=== PATIENT | male | born 1985 | race Caucasian/White ===

== ENCOUNTER 2017-03-03 23:15 | Emergency (ER) | payer OTHER ==
[~2017-03-03] VITALS: Ht 177.8 cm; Wt 77.1 kg
[~2017-03-03 23:15] MED LIST: AMOX500 PO; Bactrim Ds Tab1 EACH PO; CLIN150 PO; CLON.1 PO; CYCL10 PO; Cleocin HCl150 MG PO; Cleocin HCl300 MG PO; DESENEX TOP; DIVA500EC; DIVA500ER; DOXY100 PO; Doxycycline150 MG PO; HYDACE10B PO; HYDACE5 PO; IBUP200; IBUP600 PO; IBUP800; IBUP800 PO; JUBLIA4 ML TP; LOPE2C PO; META800 PO; METH10; METH40; MONDOXYNE NL100 MG PO; NAPR500 PO; NAPR550 PO; Naprosyn500 MG PO; OXYACE5T PO; PENVK250 PO; PENVK500 PO; PROM25 PO; Penicillin125 MG/5 M; RXPENVK250 PO; SULTRIDS PO; TOLN45 TOP; TRAACE PO; Vibramycin100 MG PO; Zofran Odt4 MG SL; Zofran4 MG PO
[2017-03-04] MEDS ORDERED: BUPR100 PO (00:07)
[2017-03-04 00:26] LABS: BASOPHILS ABSOLUTE AUTO 0.02 K/mm3 (0.00-0.23); BASOPHILS PERCENT AUTO 0 % (0-2); EOSINOPHILS ABSOLUTE AUTO 0.07 K/mm3 (0.00-0.68); EOSINOPHILS PERCENT AUTO 1 % (0-6); Hematocrit 36.7 % (37.0-53.0); Hemoglobin 12.5 g/dL (13.5-17.5); IMMATURE GRAN ABSOLUTE AUTO 0.02 K/mm3 (0.00-0.10); IMMATURE GRAN PERCENT AUTO 0 % (0-1); LYMPHOCYTES ABSOLUTE AUTO 1.41 K/mm3 (0.84-5.20); LYMPHOCYTES PERCENT AUTO 13 % (21-46); MONOCYTES ABSOLUTE AUTO 1.18 K/mm3 (0.16-1.47); MONOCYTES PERCENT AUTO 11 % (4-13); Mean Corpuscular HGB 30.6 pg (26.0-34.0); Mean Corpuscular HGB Conc 34.1 g/dL (31.5-36.5); Mean Corpuscular Volume 90 fL (80-100); Mean Platelet Volume 11.1 fL (9.1-12.4); NEUTROPHILS ABSOLUTE AUTO 7.79 K/mm3 (1.96-9.15); NEUTROPHILS PERCENT AUTO 74 % (41-73); Platelet Count 241 K/mm3 (150-400); RDW Coefficient Variation 12.9 % (11.7-14.2); RDW Standard Deviation 42.6 fL (35.1-46.3); Red Blood Cell Count 4.09 M/mm3 (4.30-5.90); White Blood Cell Count 10.49 K/mm3 (4.00-11.30)
[2017-03-04 00:44] LABS: Alanine Aminotransfer (ALT/SGP 25 U/L (12-78); Albumin, Blood 3.4 g/dL (3.4-5.0); Albumin/Globulin Ratio 0.9 (0.8-1.8); Alk Phos 57 U/L (50-136); Anion Gap 8 mmol/L (6-16); Aspartate Aminotrans (AST/SGOT 24 U/L (12-37); Bilirubin, Total 0.4 mg/dL (0.1-1.0); Blood Urea Nitrogen 14 mg/dL (8-24); CO2, Blood 28 mmol/L (21-32); Calcium, Blood 8.5 mg/dL (8.5-10.1); Chloride, Blood 107 mmol/L (98-108); Creatinine, Blood 0.58 mg/dL (0.60-1.20); Globulin, Blood 3.6 g/dL (2.2-4.0); Glomerular Filtration Rate >60 (60-); Glucose, Blood 104 mg/dL (70-99); Potassium, Blood 3.4 mmol/L (3.5-5.5); Sodium, Blood 143 mmol/L (136-145)
[2017-03-04] MEDS ORDERED: Zofran Odt4 MG SL (01:15)
[2017-07-26] MEDS ORDERED: Bactrim Ds Tab1 EACH PO (06:57)
[2017-09-25] MEDS ORDERED: Loperamide2 MG PO (05:46)
[2017-09-25] MEDS ORDERED: Zofran Odt4 MG PO (05:46)
== END 2017-03-04 01:30 | disposition home or self-care (01) ==
LOC: ER 23:15
PROVIDERS: Physician Assistant
DX: R10.32 Left lower quadrant pain (principal); R11.2 Nausea with vomiting, unspecified; F41.9 Anxiety disorder, unspecified; F17.200 Nicotine dependence, unspecified, uncomplicated; Z79.899 Other long term (current) drug therapy; Z90.89 Acquired absence of other organs
CPT/HCPCS: 36415; 80053; 83690; 85025; 96361; 96374; 99283; J2405; J7030

== ENCOUNTER 2017-04-11 06:53 | Emergency (ER) | payer OTHER ==
[~2017-04-11] VITALS: Ht 177.8 cm; Wt 68.0 kg
[~2017-04-11 06:53] MED LIST changes: +BUPR100 PO
[2017-04-11] MEDS ORDERED: IBUP600 PO (07:24)
[2017-07-26] MEDS ORDERED: Bactrim Ds Tab1 EACH PO (06:57)
[2017-09-25] MEDS ORDERED: Loperamide2 MG PO (05:46)
[2017-09-25] MEDS ORDERED: Zofran Odt4 MG PO (05:46)
== END 2017-04-11 07:29 | disposition home or self-care (01) ==
LOC: ER 06:53
DX: M79.621 Pain in right upper arm (principal); F41.9 Anxiety disorder, unspecified; F17.200 Nicotine dependence, unspecified, uncomplicated; Z86.19 Personal history of other infectious and parasitic diseases; Z90.89 Acquired absence of other organs
CPT/HCPCS: 99282

== ENCOUNTER 2017-04-19 01:38 | Emergency (ER) | payer OTHER ==
[~2017-04-19] VITALS: Ht 177.8 cm; Wt 69.4 kg
[2017-04-19 02:28] LABS: Source, Urine Clean Catch
[2017-04-19 02:30] LABS: Bilirubin, Urine Neg (Neg); Blood, Urine Neg (Neg); Glucose Qualitative, Urine Neg (Neg); Ketones, Urine Neg (Neg); Leukocyte Esterase, Urine Neg (Neg); Nitrite, Urine Neg (Neg); Protein, Urine 1+ (Neg); Specific Gravity, Urine 1.025 (1.003-1.022); Urobilinogen, Urine 1+ (Normal)
[2017-04-19 02:35] LABS: Appearance, Urine Clear (Clear); Color, Urine Yellow (P-Yellow)
[2017-07-26] MEDS ORDERED: Bactrim Ds Tab1 EACH PO (06:57)
[2017-09-25] MEDS ORDERED: Zofran Odt4 MG PO (05:46)
[2017-09-25] MEDS ORDERED: Loperamide2 MG PO (05:46)
== END 2017-04-19 03:15 | disposition home or self-care (01) ==
LOC: ER 01:38
PROVIDERS: Emergency Medicine
DX: R30.0 Dysuria (principal); N50.812 Left testicular pain; F17.200 Nicotine dependence, unspecified, uncomplicated
CPT/HCPCS: 99283; J0696

== ENCOUNTER 2017-04-29 04:51 | Emergency (ER) | payer OTHER ==
[~2017-04-29] VITALS: Ht 172.7 cm; Wt 65.8 kg
[2017-07-26] MEDS ORDERED: Bactrim Ds Tab1 EACH PO (06:57)
[2017-09-25] MEDS ORDERED: Loperamide2 MG PO (05:46)
[2017-09-25] MEDS ORDERED: Zofran Odt4 MG PO (05:46)
== END 2017-04-29 05:23 | disposition left against medical advice (07) ==
LOC: ER 04:51
DX: Z53.21 Procedure and treatment not carried out due to patient leaving prior to being seen by health care provider (principal)
CPT/HCPCS: 99281

== ENCOUNTER 2017-05-01 04:26 | Emergency (ER) | payer OTHER ==
[2017-07-26] MEDS ORDERED: Bactrim Ds Tab1 EACH PO (06:57)
[2017-09-25] MEDS ORDERED: Zofran Odt4 MG PO (05:46)
[2017-09-25] MEDS ORDERED: Loperamide2 MG PO (05:46)
== END 2017-05-01 05:56 | disposition left against medical advice (07) ==
LOC: ER 04:26
DX: Z53.21 Procedure and treatment not carried out due to patient leaving prior to being seen by health care provider (principal)

== ENCOUNTER 2017-05-08 00:12 | Emergency (ER) | payer OTHER ==
[~2017-05-08] VITALS: Ht 177.8 cm; Wt 70.3 kg
[2017-07-26] MEDS ORDERED: Bactrim Ds Tab1 EACH PO (06:57)
[2017-09-25] MEDS ORDERED: Loperamide2 MG PO (05:46)
[2017-09-25] MEDS ORDERED: Zofran Odt4 MG PO (05:46)
== END 2017-05-08 05:48 | disposition home or self-care (01) ==
LOC: ER 00:12
DX: B35.3 Tinea pedis (principal); F41.9 Anxiety disorder, unspecified; F17.210 Nicotine dependence, cigarettes, uncomplicated
CPT/HCPCS: 99282

== ENCOUNTER 2017-05-22 20:32 | Emergency (ER) | payer OTHER ==
[~2017-05-22] VITALS: Ht 177.8 cm; Wt 68.0 kg
== END 2017-05-22 21:13 | disposition left against medical advice (07) ==
LOC: ER 20:32
DX: Z53.21 Procedure and treatment not carried out due to patient leaving prior to being seen by health care provider (principal)
CPT/HCPCS: 93005; 93010; 99283

== ENCOUNTER 2017-07-01 18:59 | Emergency (ER) | payer SELFPAY | END 2017-07-01 20:01 | disposition left against medical advice (07) | LOC: ER 18:59 | DX: Z53.21 Procedure and treatment not carried out due to patient leaving prior to being seen by health care provider (principal) ==

== ENCOUNTER 2017-07-17 07:10 | Inpatient (IN) | payer OTHER ==
[~2017-07-17] VITALS: Ht 180.3 cm; Wt 77.9 kg
[2017-07-17 08:45] LABS: BASOPHILS ABSOLUTE AUTO 0.04 K/mm3 (0.00-0.23); BASOPHILS PERCENT AUTO 0 % (0-2); EOSINOPHILS ABSOLUTE AUTO 0.07 K/mm3 (0.00-0.68); EOSINOPHILS PERCENT AUTO 1 % (0-6); IMMATURE GRAN ABSOLUTE AUTO 0.09 K/mm3 (0.00-0.10); IMMATURE GRAN PERCENT AUTO 1 % (0-1); LYMPHOCYTES ABSOLUTE AUTO 1.31 K/mm3 (0.84-5.20); LYMPHOCYTES PERCENT AUTO 9 % (21-46); MONOCYTES ABSOLUTE AUTO 1.27 K/mm3 (0.16-1.47); MONOCYTES PERCENT AUTO 8 % (4-13); Mean Corpuscular HGB 30.4 pg (26.0-34.0); Mean Corpuscular HGB Conc 34.1 g/dL (31.5-36.5); Mean Corpuscular Volume 89 fL (80-100); Mean Platelet Volume 10.5 fL (9.1-12.4); NEUTROPHILS ABSOLUTE AUTO 12.62 K/mm3 (1.96-9.15); NEUTROPHILS PERCENT AUTO 82 % (41-73); Platelet Count 385 K/mm3 (150-400); RDW Coefficient Variation 12.5 % (11.7-14.2); RDW Standard Deviation 41.2 fL (35.1-46.3); Red Blood Cell Count 4.61 M/mm3 (4.30-5.90)
[2017-07-17 09:00] LABS: Alanine Aminotransfer (ALT/SGP 35 U/L (12-78); Albumin, Blood 3.3 g/dL (3.4-5.0); Albumin/Globulin Ratio 0.7 (0.8-1.8); Alk Phos 94 U/L (50-136); Anion Gap 8 mmol/L (6-16); Aspartate Aminotrans (AST/SGOT 24 U/L (12-37); Bilirubin, Total 0.4 mg/dL (0.1-1.0); Blood Urea Nitrogen 11 mg/dL (8-24); Bun/Creatinine Ratio 16.2 (12.0-20.0); CO2, Blood 28 mmol/L (21-32); Calcium, Blood 8.9 mg/dL (8.5-10.1); Chloride, Blood 106 mmol/L (98-108); Creatinine, Blood 0.68 mg/dL (0.60-1.20); Globulin, Blood 4.7 g/dL (2.2-4.0); Glomerular Filtration Rate >60 (60-); Glucose, Blood 96 mg/dL (70-99); Potassium, Blood 3.8 mmol/L (3.5-5.5); Sodium, Blood 142 mmol/L (136-145)
== END 2017-07-17 14:45 | disposition left against medical advice (07) | DRG 603 ==
LOC: ER 07:10 → ERHOLD 10:10 → MEDS 10:10
PROVIDERS: Emergency Medicine
DX: L02.414 Cutaneous abscess of left upper limb (principal); I10 Essential (primary) hypertension; F17.210 Nicotine dependence, cigarettes, uncomplicated; F15.21 Other stimulant dependence, in remission; F41.9 Anxiety disorder, unspecified; B95.62 Methicillin resistant Staphylococcus aureus infection as the cause of diseases classified elsewhere
CPT/HCPCS: 36415; 71046; 73110; 76882; 80053; 85025; 87070; 87075; 87077; 87186; 87205; 96365; 96366; 99285; J3370

== ENCOUNTER 2017-07-20 10:58 | Inpatient (IN) | payer OTHER ==
[~2017-07-20] VITALS: Ht 177.8 cm; Wt 75.2 kg
[2017-07-20 13:08] LABS: BASOPHILS ABSOLUTE AUTO 0.05 K/mm3 (0.00-0.23); BASOPHILS PERCENT AUTO 1 % (0-2); EOSINOPHILS PERCENT AUTO 3 % (0-6); Hematocrit 40.1 % (37.0-53.0); Hemoglobin 13.6 g/dL (13.5-17.5); IMMATURE GRAN ABSOLUTE AUTO 0.08 K/mm3 (0.00-0.10); IMMATURE GRAN PERCENT AUTO 1 % (0-1); LYMPHOCYTES ABSOLUTE AUTO 2.26 K/mm3 (0.84-5.20); LYMPHOCYTES PERCENT AUTO 22 % (21-46); MONOCYTES ABSOLUTE AUTO 0.77 K/mm3 (0.16-1.47); MONOCYTES PERCENT AUTO 7 % (4-13); Mean Corpuscular HGB 30.6 pg (26.0-34.0); Mean Corpuscular HGB Conc 33.9 g/dL (31.5-36.5); Mean Corpuscular Volume 90 fL (80-100); Mean Platelet Volume 11.1 fL (9.1-12.4); NEUTROPHILS ABSOLUTE AUTO 6.95 K/mm3 (1.96-9.15); NEUTROPHILS PERCENT AUTO 67 % (41-73); Platelet Count 473 K/mm3 (150-400); RDW Coefficient Variation 12.6 % (11.7-14.2); RDW Standard Deviation 41.5 fL (35.1-46.3); Red Blood Cell Count 4.45 M/mm3 (4.30-5.90); White Blood Cell Count 10.41 K/mm3 (4.00-11.30)
[2017-07-20 13:24] LABS: Alanine Aminotransfer (ALT/SGP 42 U/L (12-78); Albumin/Globulin Ratio 0.6 (0.8-1.8); Alk Phos 90 U/L (50-136); Anion Gap 7 mmol/L (6-16); Aspartate Aminotrans (AST/SGOT 28 U/L (12-37); Bilirubin, Total 0.3 mg/dL (0.1-1.0); Blood Urea Nitrogen 16 mg/dL (8-24); Bun/Creatinine Ratio 26.6 (12.0-20.0); CO2, Blood 24 mmol/L (21-32); Calcium, Blood 8.6 mg/dL (8.5-10.1); Chloride, Blood 109 mmol/L (98-108); Globulin, Blood 4.8 g/dL (2.2-4.0); Glomerular Filtration Rate >60 (60-); Glucose, Blood 126 mg/dL (70-99); Potassium, Blood 4.1 mmol/L (3.5-5.5); Sodium, Blood 140 mmol/L (136-145); Total Protein, Blood 7.8 g/dL (6.4-8.2)
[2017-07-21 05:38] LABS: U Amphetamine Screen DETECTED
[2017-07-21 05:39] LABS: U Barbituate Screen Not Detected; U Benzodiazapine Screen Not Detected; U Buprenorphine Screen Not Detected; U Cannabinoids Screen Not Detected; U Cocaine Screen Not Detected; U Methadone Screen Not Detected; U Methamphetamine Screen Not Detected; U Opiates Screen Not Detected; U Oxycodone Screen Not Detected; U Phencyclidine Screen Not Detected; U Propoxyphene Screen Not Detected
[2017-07-21 06:05] LABS: BASOPHILS ABSOLUTE AUTO 0.07 K/mm3 (0.00-0.23); BASOPHILS PERCENT AUTO 1 % (0-2); EOSINOPHILS ABSOLUTE AUTO 0.26 K/mm3 (0.00-0.68); EOSINOPHILS PERCENT AUTO 2 % (0-6); Hematocrit 39.7 % (37.0-53.0); Hemoglobin 13.3 g/dL (13.5-17.5); IMMATURE GRAN ABSOLUTE AUTO 0.15 K/mm3 (0.00-0.10); IMMATURE GRAN PERCENT AUTO 1 % (0-1); LYMPHOCYTES ABSOLUTE AUTO 2.03 K/mm3 (0.84-5.20); LYMPHOCYTES PERCENT AUTO 14 % (21-46); MONOCYTES ABSOLUTE AUTO 0.93 K/mm3 (0.16-1.47); MONOCYTES PERCENT AUTO 7 % (4-13); Mean Corpuscular HGB 30.4 pg (26.0-34.0); Mean Corpuscular HGB Conc 33.5 g/dL (31.5-36.5); Mean Corpuscular Volume 91 fL (80-100); NEUTROPHILS PERCENT AUTO 76 % (41-73); Platelet Count 463 K/mm3 (150-400); RDW Coefficient Variation 12.5 % (11.7-14.2); RDW Standard Deviation 41.9 fL (35.1-46.3); Red Blood Cell Count 4.37 M/mm3 (4.30-5.90); White Blood Cell Count 14.14 K/mm3 (4.00-11.30)
[2017-07-21 06:20] LABS: Alanine Aminotransfer (ALT/SGP 46 U/L (12-78); Albumin, Blood 2.3 g/dL (3.4-5.0); Albumin/Globulin Ratio 0.5 (0.8-1.8); Alk Phos 73 U/L (50-136); Anion Gap 6 mmol/L (6-16); Aspartate Aminotrans (AST/SGOT 30 U/L (12-37); Bilirubin, Total 0.2 mg/dL (0.1-1.0); Blood Urea Nitrogen 22 mg/dL (8-24); Bun/Creatinine Ratio 30.9 (12.0-20.0); CO2, Blood 26 mmol/L (21-32); Calcium, Blood 8.4 mg/dL (8.5-10.1); Chloride, Blood 110 mmol/L (98-108); Creatinine, Blood 0.71 mg/dL (0.60-1.20); Globulin, Blood 4.5 g/dL (2.2-4.0); Glomerular Filtration Rate >60 (60-); Glucose, Blood 102 mg/dL (70-99); Potassium, Blood 4.4 mmol/L (3.5-5.5); Sodium, Blood 142 mmol/L (136-145); Total Protein, Blood 6.8 g/dL (6.4-8.2)
[2017-07-21 13:04] LABS: Vancomycin, Trough 13.7 ug/mL (5.0-10.0)
== END 2017-07-21 20:51 | disposition left against medical advice (07) | DRG 603 ==
LOC: ER 10:58 → MEDS 14:32
PROVIDERS: Internal Medicine; Physician Assistant
DX: L03.114 Cellulitis of left upper limb (principal); L02.414 Cutaneous abscess of left upper limb; F41.9 Anxiety disorder, unspecified; F15.10 Other stimulant abuse, uncomplicated; F17.210 Nicotine dependence, cigarettes, uncomplicated; Z59.0 Homelessness; Z53.21 Procedure and treatment not carried out due to patient leaving prior to being seen by health care provider
CPT/HCPCS: 36415; 71046; 73201; 80053; 80202; 85025; 85651; 86140; 87070; 87075; 87076; 87077; 87147; 87185; 87186; 87205; 96365; 96366; 96375; 99285; J1200; J1650; J1885; J3370; J7030; J7050; Q9967

== ENCOUNTER 2017-10-19 09:07 | Emergency (ER) | payer OTHER ==
[~2017-10-19 09:07] MED LIST changes: +Loperamide2 MG PO; +Zofran Odt4 MG PO
== END 2017-10-19 10:02 | disposition left against medical advice (07) ==
LOC: ER 09:07
DX: Z53.21 Procedure and treatment not carried out due to patient leaving prior to being seen by health care provider (principal)

== ENCOUNTER 2017-10-21 03:03 | Emergency (ER) | payer OTHER ==
[~2017-10-21] VITALS: Ht 177.8 cm; Wt 56.7 kg
[2017-10-21] MEDS ORDERED: CIME400 PO (06:23)
== END 2017-10-21 07:20 | disposition home or self-care (01) ==
LOC: ER 03:03
DX: R10.9 Unspecified abdominal pain (principal); R11.2 Nausea with vomiting, unspecified; Z87.891 Personal history of nicotine dependence
CPT/HCPCS: 99283

== ENCOUNTER 2017-10-26 04:36 | Emergency (ER) | payer OTHER ==
[~2017-10-26] VITALS: Ht 177.8 cm; Wt 70.3 kg
[~2017-10-26 04:36] MED LIST changes: +CIME400 PO
[2017-10-26] MEDS ORDERED: Zofran Odt4 MG PO (05:16)
== END 2017-10-26 05:51 | disposition home or self-care (01) ==
LOC: ER 04:36
DX: R11.2 Nausea with vomiting, unspecified (principal); Z87.891 Personal history of nicotine dependence
CPT/HCPCS: 99282; J2405

== ENCOUNTER 2017-11-04 01:31 | Emergency (ER) | payer OTHER ==
[~2017-11-04] VITALS: Ht 177.8 cm; Wt 68.0 kg
== END 2017-11-04 02:22 | disposition home or self-care (01) ==
LOC: ER 01:31
DX: B35.3 Tinea pedis (principal); F41.9 Anxiety disorder, unspecified; Z87.891 Personal history of nicotine dependence
CPT/HCPCS: 99282

== ENCOUNTER 2018-03-22 22:36 | Emergency (ER) | payer OTHER ==
[~2018-03-22] VITALS: Ht 177.8 cm; Wt 72.6 kg
[2018-03-22 23:38] LABS: Source, Urine Clean Catch
[2018-03-22 23:40] LABS: Bilirubin, Urine Neg (Neg); Blood, Urine Neg (Neg); Glucose Qualitative, Urine Neg (Neg); Ketones, Urine 1+ (Neg); Leukocyte Esterase, Urine Neg (Neg); Nitrite, Urine Neg (Neg); Protein, Urine 2+ (Neg); Urobilinogen, Urine 1+ (Normal)
[2018-03-22 23:41] LABS: Appearance, Urine Clear (Clear); Color, Urine Amber (P-Yellow)
[2018-03-22 23:46] LABS: Red Blood Cells, Urine 0-2 /hpf (0-2)
[2018-03-22 23:47] LABS: Bacteria Mod /hpf; Mucus Light (0-Heavy); Squamous Epithelial Cells Not Seen /hpf (Few); White Blood Cells, Urine 0-2 /hpf (0-5)
[2018-03-25 01:09] LABS: CHLAMYDIA TRACHOMATIS, NAA Negative (Negative); NEISSERIA GONORRHOEAE, NAA Negative (Negative)
== END 2018-03-23 00:04 | disposition home or self-care (01) ==
LOC: ER 22:36
PROVIDERS: Physician Assistant
DX: Z11.3 Encounter for screening for infections with a predominantly sexual mode of transmission (principal); F17.210 Nicotine dependence, cigarettes, uncomplicated
CPT/HCPCS: 81001; 87086; 87491; 87591; 96372; 99283-25; J0696

== ENCOUNTER 2018-04-13 20:19 | Emergency (ER) | payer OTHER ==
[~2018-04-13] VITALS: Ht 177.8 cm; Wt 61.2 kg
== END 2018-04-13 22:27 | disposition home or self-care (01) ==
LOC: ER 20:19
DX: I73.00 Raynaud's syndrome without gangrene (principal); F17.210 Nicotine dependence, cigarettes, uncomplicated
CPT/HCPCS: 99283

== ENCOUNTER 2018-07-22 23:45 | Emergency (ER) | payer OTHER ==
[~2018-07-22] VITALS: Ht 180.3 cm; Wt 72.6 kg
[2018-07-23 00:15] LABS: BASOPHILS ABSOLUTE AUTO 0.03 K/mm3 (0.00-0.23); BASOPHILS PERCENT AUTO 0 % (0-2); EOSINOPHILS ABSOLUTE AUTO 0.05 K/mm3 (0.00-0.68); EOSINOPHILS PERCENT AUTO 1 % (0-6); Hematocrit 41.9 % (37.0-53.0); Hemoglobin 14.2 g/dL (13.5-17.5); IMMATURE GRAN ABSOLUTE AUTO 0.02 K/mm3 (0.00-0.10); IMMATURE GRAN PERCENT AUTO 0 % (0-1); LYMPHOCYTES ABSOLUTE AUTO 2.26 K/mm3 (0.84-5.20); LYMPHOCYTES PERCENT AUTO 28 % (21-46); MONOCYTES ABSOLUTE AUTO 0.94 K/mm3 (0.16-1.47); MONOCYTES PERCENT AUTO 12 % (4-13); Mean Corpuscular HGB 29.8 pg (26.0-34.0); Mean Corpuscular HGB Conc 33.9 g/dL (31.5-36.5); Mean Corpuscular Volume 88 fL (80-100); Mean Platelet Volume 10.2 fL (9.1-12.4); NEUTROPHILS ABSOLUTE AUTO 4.87 K/mm3 (1.96-9.15); NEUTROPHILS PERCENT AUTO 60 % (41-73); Platelet Count 279 K/mm3 (150-400); RDW Coefficient Variation 13.1 % (11.7-14.2); RDW Standard Deviation 42.1 fL (35.1-46.3); Red Blood Cell Count 4.76 M/mm3 (4.30-5.90); White Blood Cell Count 8.17 K/mm3 (4.00-11.30)
[2018-07-23 00:34] LABS: Alanine Aminotransfer (ALT/SGP 43 U/L (12-78); Albumin, Blood 3.7 g/dL (3.4-5.0); Alk Phos 77 U/L (50-136); Anion Gap 8 mmol/L (6-16); Aspartate Aminotrans (AST/SGOT 24 U/L (12-37); Bilirubin, Total 0.4 mg/dL (0.1-1.0); Blood Urea Nitrogen 20 mg/dL (8-24); Bun/Creatinine Ratio 24.3 (12.0-20.0); CO2, Blood 26 mmol/L (21-32); Calcium, Blood 8.6 mg/dL (8.5-10.1); Chloride, Blood 110 mmol/L (98-108); Creatinine, Blood 0.82 mg/dL (0.60-1.20); Globulin, Blood 3.7 g/dL (2.2-4.0); Glomerular Filtration Rate >60 (60-); Glucose, Blood 116 mg/dL (70-99); Potassium, Blood 4.1 mmol/L (3.5-5.5); Sodium, Blood 144 mmol/L (136-145); Total Protein, Blood 7.4 g/dL (6.4-8.2)
== END 2018-07-23 02:55 | disposition left against medical advice (07) ==
LOC: ER 23:45
PROVIDERS: Emergency Medicine
DX: Z53.21 Procedure and treatment not carried out due to patient leaving prior to being seen by health care provider (principal)
CPT/HCPCS: 80053; 83690; 85025

== ENCOUNTER 2018-09-05 04:51 | Emergency (ER) | payer OTHER | END 2018-09-05 05:53 | disposition left against medical advice (07) | LOC: ER 04:51 | DX: Z53.21 Procedure and treatment not carried out due to patient leaving prior to being seen by health care provider (principal) ==

== ENCOUNTER 2018-12-01 01:19 | Emergency (ER) | payer OTHER ==
[~2018-12-01] VITALS: Ht 180.3 cm; Wt 77.1 kg
[2018-12-01 02:20] LABS: Calcium, Ionized (POC) 1.13 mmol/L (1.10-1.46); Chloride (POC) 107 mmol/L (98-108); Creatinine (POC) 0.9 mg/dL (0.8-1.3); Glucose (ISTAT POC) 108 mg/dL (70-99); Hemoglobin (POC) 14.3 g/dL (13.5-17.5); Potassium (POC) 4.1 mmol/L (3.5-5.5); Sodium (POC) 139 mmol/L (135-148); Total CO2 (POC) 23 mmol/L (21-32)
== END 2018-12-01 02:25 | disposition home or self-care (01) ==
LOC: ER 01:19
PROVIDERS: Emergency Medicine
DX: R10.84 Generalized abdominal pain (principal); R11.0 Nausea; F20.9 Schizophrenia, unspecified; F17.210 Nicotine dependence, cigarettes, uncomplicated
CPT/HCPCS: 36415; 80047; 85014; 99283

== ENCOUNTER 2019-01-07 04:23 | Emergency (ER) | payer SELFPAY ==
[~2019-01-07] VITALS: Ht 177.8 cm; Wt 68.0 kg
== END 2019-01-07 05:36 | disposition home or self-care (01) ==
LOC: ER 04:23
DX: F31.9 Bipolar disorder, unspecified (principal); F17.210 Nicotine dependence, cigarettes, uncomplicated
CPT/HCPCS: 99283; J2250; J3010; J7030

== ENCOUNTER 2019-03-20 03:04 | Emergency (ER) | payer SELFPAY | END 2019-03-20 04:14 | disposition left against medical advice (07) | LOC: ER 03:04 | DX: Z53.21 Procedure and treatment not carried out due to patient leaving prior to being seen by health care provider (principal) ==

== ENCOUNTER 2019-03-26 23:16 | Emergency (ER) | payer SELFPAY ==
[~2019-03-26] VITALS: Ht 180.3 cm; Wt 79.4 kg
== END 2019-03-27 02:06 | disposition left against medical advice (07) ==
LOC: ER 23:16
DX: Z53.21 Procedure and treatment not carried out due to patient leaving prior to being seen by health care provider (principal)

== ENCOUNTER 2019-10-28 07:03 | Emergency (ER) | payer OTHER ==
[~2019-10-28] VITALS: Ht 182.9 cm; Wt 77.1 kg
[2019-10-28 07:29] LABS: Hematocrit 45.1 % (37.0-53.0); Hemoglobin 14.9 g/dL (13.5-17.5); Mean Corpuscular HGB 28.5 pg (26.0-34.0); Mean Corpuscular Volume 86 fL (80-100); RDW Coefficient Variation 14.8 % (11.7-14.2); RDW Standard Deviation 46.7 fL (35.1-46.3); Red Blood Cell Count 5.23 M/mm3 (4.30-5.90)
[2019-10-28 07:49] LABS: Alanine Aminotransfer (ALT/SGP 58 U/L (12-78); Albumin, Blood 2.4 g/dL (3.4-5.0); Albumin/Globulin Ratio 0.4 (0.8-1.8); Alk Phos 113 U/L (50-136); Anion Gap 10 mmol/L (6-16); Aspartate Aminotrans (AST/SGOT 86 U/L (12-37); Bilirubin, Total 0.8 mg/dL (0.1-1.0); Blood Urea Nitrogen 24 mg/dL (8-24); Bun/Creatinine Ratio 23.1 (12.0-20.0); CO2, Blood 23 mmol/L (21-32); CPK Creatine Kinase 165 U/L (39-308); Calcium, Blood 8.5 mg/dL (8.5-10.1); Chloride, Blood 99 mmol/L (98-108); Creatinine, Blood 1.04 mg/dL (0.60-1.20); Globulin, Blood 5.7 g/dL (2.2-4.0); Glomerular Filtration Rate >60 (60-); Glucose, Blood 175 mg/dL (70-99); Potassium, Blood 4.2 mmol/L (3.5-5.5); Sodium, Blood 132 mmol/L (136-145); Total Protein, Blood 8.1 g/dL (6.4-8.2); Troponin I <0.015 ng/mL (0.000-0.040)
[2019-10-28 07:52] LABS: Platelet Count 123 K/mm3 (150-400)
[2019-10-28 07:56] LABS: BAND PERCENT MAN 7 % (0-8); BASOPHILS PERCENT MAN 0 % (0-2); EOSINOPHILS PERCENT MAN 0 % (0-6); LYMPHOCYTES ABSOLUTE MAN 0.58 K/mm3 (0.84-5.20); LYMPHOCYTES PERCENT MAN 6 % (21-46); MONOCYTES ABSOLUTE MAN 0.58 K/mm3 (0.16-1.47); MONOCYTES PERCENT MAN 6 % (4-13); NEUTROPHILS ABSOLUTE MAN 8.62 K/mm3 (1.96-9.15); SEG NEUTROPHILS PERCENT MAN 81 % (41-73); TOTAL CELLS COUNTED 100
[2019-10-28 09:08] LABS: Source, Urine Clean Catch
[2019-10-28 09:12] LABS: Appearance, Urine Clear (Clear); Bilirubin, Urine Neg (Neg); Blood, Urine 2+ (Neg); Color, Urine Yellow (P-Yellow); Glucose Qualitative, Urine 4+ (Neg); Ketones, Urine Neg (Neg); Leukocyte Esterase, Urine Neg (Neg); Nitrite, Urine Neg (Neg); Protein, Urine 2+ (Neg); Urobilinogen, Urine 2+ (Normal)
[2019-10-28 09:20] LABS: Bacteria Not Seen /hpf; Red Blood Cells, Urine 0-2 /hpf (0-2); Squamous Epithelial Cells Not Seen /hpf (Few); White Blood Cells, Urine 0-2 /hpf (0-5)
[2019-10-28 09:21] LABS: Mucus Light (0-Heavy)
[2019-10-28 09:27] LABS: U Amphetamine Screen Not Detected; U Barbituate Screen Not Detected; U Benzodiazapine Screen Not Detected; U Buprenorphine Screen Not Detected; U Cannabinoids Screen Not Detected; U Cocaine Screen Not Detected; U Methadone Screen Not Detected; U Methamphetamine Screen Not Detected; U Opiates Screen Not Detected; U Oxycodone Screen Not Detected; U Phencyclidine Screen Not Detected; U Propoxyphene Screen Not Detected
== END 2019-10-28 13:20 | disposition short-term general hospital (02) ==
LOC: ER 07:03
PROVIDERS: Emergency Medicine
DX: I33.9 Acute and subacute endocarditis, unspecified (principal); I26.90 Septic pulmonary embolism without acute cor pulmonale; F41.9 Anxiety disorder, unspecified; F17.210 Nicotine dependence, cigarettes, uncomplicated; Z20.828 Contact with and (suspected) exposure to other viral communicable diseases
CPT/HCPCS: 36415; 71045; 71260; 80053; 81001; 82550; 83605; 83880; 84484; 85025; 85379; 87040; 87147; 93005; 93010; 93306; 96361; 96365; 96367; 96375; 99285-25; J0692; J2060; J3370; J7030; J7050; J7120; Q9967; U0002

== ENCOUNTER 2021-02-11 10:34 | Emergency (ER) | payer OTHER ==
[~2021-02-11] VITALS: Ht 180.3 cm; Wt 74.8 kg
== END 2021-02-11 11:05 | disposition left against medical advice (07) ==
LOC: ER 10:34
DX: S00.83XA Contusion of other part of head, initial encounter (principal); R44.0 Auditory hallucinations; F17.210 Nicotine dependence, cigarettes, uncomplicated; Z88.0 Allergy status to penicillin
CPT/HCPCS: 99284; A9270

== ENCOUNTER 2021-02-13 17:19 | Emergency (ER) | payer OTHER ==
[~2021-02-13] VITALS: Ht 177.8 cm; Wt 72.6 kg
== END 2021-02-13 18:31 | disposition home or self-care (01) ==
LOC: ER 17:19
DX: K21.9 Gastro-esophageal reflux disease without esophagitis (principal); R10.10 Upper abdominal pain, unspecified; F17.200 Nicotine dependence, unspecified, uncomplicated; Z88.0 Allergy status to penicillin
CPT/HCPCS: 99282

== ENCOUNTER 2021-09-05 05:15 | Inpatient (IN) | payer OTHER ==
[~2021-09-05] VITALS: Ht 177.8 cm; Wt 49.9 kg
[2021-09-05 06:54] LABS: BASOPHILS ABSOLUTE AUTO 0.07 K/mm3 (0.00-0.23); BASOPHILS PERCENT AUTO 0 % (0-2); EOSINOPHILS ABSOLUTE AUTO 0.15 K/mm3 (0.00-0.68); EOSINOPHILS PERCENT AUTO 1 % (0-6); Hematocrit 33.4 % (37.0-53.0); Hemoglobin 11.3 g/dL (13.5-17.5); IMMATURE GRAN ABSOLUTE AUTO 0.07 K/mm3 (0.00-0.10); IMMATURE GRAN PERCENT AUTO 0 % (0-1); LYMPHOCYTES ABSOLUTE AUTO 2.75 K/mm3 (0.84-5.20); LYMPHOCYTES PERCENT AUTO 17 % (21-46); MONOCYTES ABSOLUTE AUTO 1.03 K/mm3 (0.16-1.47); MONOCYTES PERCENT AUTO 6 % (4-13); Mean Corpuscular HGB 28.7 pg (26.0-34.0); Mean Corpuscular HGB Conc 33.8 g/dL (31.5-36.5); Mean Corpuscular Volume 85 fL (80-100); Mean Platelet Volume 10.5 fL (9.1-12.4); NEUTROPHILS ABSOLUTE AUTO 12.61 K/mm3 (1.96-9.15); NEUTROPHILS PERCENT AUTO 76 % (41-73); Platelet Count 411 K/mm3 (150-400); RDW Coefficient Variation 14.5 % (11.7-14.2); RDW Standard Deviation 44.9 fL (35.1-46.3); Red Blood Cell Count 3.94 M/mm3 (4.30-5.90); White Blood Cell Count 16.68 K/mm3 (4.00-11.30)
[2021-09-05 07:11] LABS: Ethanol (Alcohol), Blood, Med <3 mg/dL; Salicylate <1.7 mg/dL (2.8-20.0); Thyroxine (T4) 10.6 ug/dL (4.5-12.1)
[2021-09-05 07:15] LABS: Alanine Aminotransfer (ALT/SGP 58 U/L (12-78); Albumin/Globulin Ratio 0.7 (0.8-1.8); Alk Phos 74 U/L (50-136); Anion Gap 5 mmol/L (6-16); Aspartate Aminotrans (AST/SGOT 52 U/L (12-37); Bilirubin, Total 0.4 mg/dL (0.1-1.0); Blood Urea Nitrogen 22 mg/dL (8-24); Bun/Creatinine Ratio 26.8 (12.0-20.0); CO2, Blood 25 mmol/L (21-32); Calcium, Blood 8.5 mg/dL (8.5-10.1); Chloride, Blood 109 mmol/L (98-108); Creatinine, Blood 0.82 mg/dL (0.60-1.20); Globulin, Blood 4.6 g/dL (2.2-4.0); Glomerular Filtration Rate 117 (60-); Glucose, Blood 157 mg/dL (70-99); Sodium, Blood 139 mmol/L (136-145); Total Protein, Blood 7.6 g/dL (6.4-8.2)
[2021-09-05 07:16] LABS: Acetaminophen, Random <2.0 ug/mL (10.0-30.0)
[2021-09-05 11:26] LABS: Source, Urine Straight Cath
[2021-09-05 11:29] LABS: Appearance, Urine Clear (Clear); Bilirubin, Urine Neg (Neg); Blood, Urine Neg (Neg); Color, Urine Yellow (P-Yellow); Glucose Qualitative, Urine Neg (Neg); Ketones, Urine Neg (Neg); Leukocyte Esterase, Urine Neg (Neg); Nitrite, Urine Neg (Neg); Protein, Urine 1+ (Neg); Urobilinogen, Urine 1+ (Normal)
[2021-09-05 11:35] LABS: Hematocrit 33.8 % (37.0-53.0); Mean Corpuscular HGB 28.4 pg (26.0-34.0); Mean Corpuscular HGB Conc 32.5 g/dL (31.5-36.5); Mean Corpuscular Volume 87 fL (80-100); Mean Platelet Volume 10.6 fL (9.1-12.4); Platelet Count 327 K/mm3 (150-400); RDW Coefficient Variation 14.6 % (11.7-14.2); RDW Standard Deviation 46.5 fL (35.1-46.3); Red Blood Cell Count 3.88 M/mm3 (4.30-5.90); White Blood Cell Count 11.48 K/mm3 (4.00-11.30)
[2021-09-05 11:47] LABS: U Amphetamine Screen Not Detected; U Methamphetamine Screen DETECTED
[2021-09-05 11:48] LABS: U Barbituate Screen Not Detected; U Benzodiazapine Screen Not Detected; U Buprenorphine Screen Not Detected; U Cannabinoids Screen Not Detected; U Cocaine Screen Not Detected; U Methadone Screen Not Detected; U Opiates Screen Not Detected; U Oxycodone Screen Not Detected; U Phencyclidine Screen Not Detected; U Propoxyphene Screen Not Detected
--- NOTE | 2021-09-05 16:30 | NUR ---
PT ARRIVED TO ROOM FROM ED VERY DROWSY. ROUSES TO CALLING HIS NAME AND FOLLOWS SIMPLE COMMANDS IN ROLLING OVER BUT DOESN'T AROUSE ENOUGH TO COMPLETELY ANSWER QUESTIONS OR PROVIDE HISTORY. BEDBATH GIVEN UPON ARRIVAL DUE TO SIGNIFICANT AMOUNT OF DRIED BLOOD IN HIS [place] AND SHOULDERS AND HEAD AND DIRT ALL OVER HIS BODY. SNORING WHEN LAYING STILL DESPITE BATH BEING PERFORMED.
--- NOTE | 2021-09-05 17:05 | NUR ---
VITALS DONE, CALL LIGHT IN REACH
--- NOTE | 2021-09-05 19:52 | NUR ---
SHIFT SUMMARY PT HAS BEEN SLEEPING SINCE JOHN COMPLETED. DR. PATTERSON IN TO SEE PT. CURRENTLY NO PLANS TO REMOVE METAL FRAGMENTS FROM ARM. ARM IS SWOLLEN AND RED IN AREAS BUT SAID NO WHENEVER ASKED IF ARM WAS HURTING HIM. REPORT GIVEN TO ONCOMING SHIFT.
--- NOTE | 2021-09-06 04:34 | NUR ---
SHIFT SUMMARY PATIENT HAD NO ACUTE CHANGES. SOMNULENT THROUGHOUT THE SHIFT. FOLLOWS SIMPLE COMMANDS. BEDREST AT THIS TIME. NOT UP SINCE ADMIT FOLLOWING SEDATION IN ED FOR WOUND INTERVENTIONS. VICKERS PATENT AND DRAINING TO GRAVITY. PIVS REMAIN INTACT. NS INFUSING AT 125mL/HR. IV ABXS INFUSED. VSS/AFEBRILE. PATIENT HAS NOT REPORTED PAIN, SOB, OR N/V. METH POSITIVE WITH HX ANXIETY DISORDER. CALL LIGHT IN REACH. BED IN LOWEST POSITION. WILL CONTINUE TO MONITOR UNTIL DAY SHIFT NURSE ASSUMES CARE.
[2021-09-06 05:24] LABS: Hematocrit 29.5 % (37.0-53.0); Hemoglobin 9.6 g/dL (13.5-17.5); Mean Corpuscular HGB 28.2 pg (26.0-34.0); Mean Corpuscular HGB Conc 32.5 g/dL (31.5-36.5); Mean Corpuscular Volume 87 fL (80-100); Mean Platelet Volume 10.7 fL (9.1-12.4); Platelet Count 293 K/mm3 (150-400); RDW Coefficient Variation 14.4 % (11.7-14.2); RDW Standard Deviation 45.6 fL (35.1-46.3); White Blood Cell Count 5.09 K/mm3 (4.00-11.30)
[2021-09-06 06:07] LABS: Bun/Creatinine Ratio 22.9 (12.0-20.0); Calcium, Blood 7.9 mg/dL (8.5-10.1); Creatinine, Blood 0.66 mg/dL (0.60-1.20); Magnesium, Blood 1.9 mg/dL (1.6-2.4); Potassium, Blood 3.9 mmol/L (3.5-5.5)
--- NOTE | 2021-09-06 12:45 | NUR ---
PT ATE HIS LUNCH AND REPORTED HE FELT BETTER AND WAS LEAVING. DISCUSSED HIS CONTINUED INFECTION TO HIS R ARM AND IMPORTANCE OF ANTIBIOTICS AND HE STATED HE FELT BETTER AND APPRECIATED THE HELP BUT HE WAS READY TO GO. SPOKE WITH MD ON THE PHONE AND DR. BASS CAME TO SPEAK WITH PT WELL. CHANGED DRESSING TO R FOREARM AND DISCUSSED HOW TO KEEP IT COVERED, CLEAN AND DRESSED. SENT A COUPLE DRESSING CHANGES WITH HIM. IV'S REMOVED INTACT. AMBULATED PT TO ELEVATORS AND EXPLAINED HOW TO EXIT BUILDING. COOPERATIVE AND PLEASANT THROUGH THE PROCESS.
== END 2021-09-06 12:54 | disposition left against medical advice (07) | DRG 871 ==
LOC: ER 05:15 → MEDS 12:35
PROVIDERS: Nurse Practitioner Acute Care; Student in an Organized Health Care Education/Training Program; ADMIT Internal Medicine
PROC: 3E03329 Introduction of Other Anti-infective into Peripheral Vein, Percutaneous Approach (ICD-10-PCS; principal; 2021-09-05)
PROC: 0HQ0XZZ Repair Scalp Skin, External Approach (ICD-10-PCS; 2021-09-05)
DX: A41.9 Sepsis, unspecified organism (principal); G92.8 Other toxic encephalopathy; L03.113 Cellulitis of right upper limb; I50.22 Chronic systolic (congestive) heart failure; F23 Brief psychotic disorder; F30.2 Manic episode, severe with psychotic symptoms; F15.10 Other stimulant abuse, uncomplicated; R65.20 Severe sepsis without septic shock; F41.9 Anxiety disorder, unspecified; F17.210 Nicotine dependence, cigarettes, uncomplicated; S91.011A Laceration without foreign body, right ankle, initial encounter; Z53.29 Procedure and treatment not carried out because of patient's decision for other reasons; L98.499 Non-pressure chronic ulcer of skin of other sites with unspecified severity; S01.01XA Laceration without foreign body of scalp, initial encounter; S09.90XA Unspecified injury of head, initial encounter; Z78.1 Physical restraint status; S51.821A Laceration with foreign body of right forearm, initial encounter; Z98.890 Other specified postprocedural states; Z88.0 Allergy status to penicillin; W22.8XXA Striking against or struck by other objects, initial encounter; Y92.524 Gas station as the place of occurrence of the external cause
CPT/HCPCS: 36415; 51702; 70450; 73090; 73201; 80048; 80053; 80202; 83605; 83735; 84436; 85025; 85027; 86592; 86850; 86900; 86901; 87040; 90471; 90714; 93005; 93010; 96365; 96366; 96367; 96375; 96376; 99285-25; A9270; G0480; J0692; J1790; J2250; J3370; J7030; J7060; Q9967

== ENCOUNTER 2022-09-05 16:30 | Observation (INO) | payer OTHER ==
[~2022-09-05] VITALS: Ht 180.3 cm; Wt 75.0 kg
[2022-09-05] VITALS (11 sets, daily range): BP systolic 112–138; BP diastolic 49–88
[2022-09-05 18:26] LABS: BASOPHILS ABSOLUTE AUTO 0.03 K/mm3 (0.00-0.23); BASOPHILS PERCENT AUTO 0 % (0-2); EOSINOPHILS ABSOLUTE AUTO 0.07 K/mm3 (0.00-0.68); EOSINOPHILS PERCENT AUTO 1 % (0-6); Hematocrit 35.6 % (37.0-53.0); Hemoglobin 11.2 g/dL (13.5-17.5); IMMATURE GRAN ABSOLUTE AUTO 0.04 K/mm3 (0.00-0.10); IMMATURE GRAN PERCENT AUTO 0 % (0-1); LYMPHOCYTES ABSOLUTE AUTO 0.73 K/mm3 (0.84-5.20); LYMPHOCYTES PERCENT AUTO 6 % (21-46); MONOCYTES ABSOLUTE AUTO 0.86 K/mm3 (0.16-1.47); MONOCYTES PERCENT AUTO 7 % (4-13); Mean Corpuscular HGB 24.1 pg (26.0-34.0); Mean Corpuscular HGB Conc 31.5 g/dL (31.5-36.5); Mean Corpuscular Volume 77 fL (80-100); NEUTROPHILS ABSOLUTE AUTO 10.03 K/mm3 (1.96-9.15); NEUTROPHILS PERCENT AUTO 85 % (41-73); Platelet Count 291 K/mm3 (150-400); RDW Coefficient Variation 17.9 % (11.7-14.2); RDW Standard Deviation 49.9 fL (35.1-46.3); Red Blood Cell Count 4.64 M/mm3 (4.30-5.90); White Blood Cell Count 11.76 K/mm3 (4.00-11.30)
[2022-09-05 18:48] LABS: Albumin, Blood 3.3 g/dL (3.4-5.0); Albumin/Globulin Ratio 0.7 (0.8-1.8); Bilirubin, Total 0.5 mg/dL (0.1-1.0); Bun/Creatinine Ratio 18.7 (12.0-20.0); Calcium, Blood 8.4 mg/dL (8.5-10.1); Creatinine, Blood 0.86 mg/dL (0.60-1.20); Globulin, Blood 4.9 g/dL (2.2-4.0); Potassium, Blood 4.2 mmol/L (3.5-5.5); Total Protein, Blood 8.2 g/dL (6.4-8.2)
--- NOTE | 2022-09-05 21:00 | NUR ---
ADMIT RECEIVED FROM ER VIA GURNEY. PT SEDATED- ROUSES SLIGHTLY TO NOXIOUS STIMULI. MOVES ALL EXTREMITIES. NOT FOLLOWING COMMANDS AT THIS TIME. OCCASIONAL SOUNDS NOTED, BUT NOT UNDERSTANDABLE WORDS AT THIS TIME. PUPILS 1MM. MONITOR SHOWS NSR, RATE 60s-70s. BP STABLE. RA SATS STABLE. RESPIRATIONS EVEN AND UNLABORED. AFEBRILE. PHOTOS TAKEN OF RFA ABSCESS AND CELLULITIS AND OF LFA WOUND. UNABLE TO EDUCATE REGARDING IGNITION SOURCES AND RISK OF INJURY D/T SEDATION. WILL CONTINUE TO ASSESS RISK AND PROVIDE EDUCATION CONDITION CHANGES/IMPROVES.
[2022-09-06] VITALS (23 sets, daily range): BP systolic 109–153; BP diastolic 62–88
[2022-09-06 03:42] LABS: BASOPHILS ABSOLUTE AUTO 0.03 K/mm3 (0.00-0.23); BASOPHILS PERCENT AUTO 0 % (0-2); EOSINOPHILS ABSOLUTE AUTO 0.14 K/mm3 (0.00-0.68); EOSINOPHILS PERCENT AUTO 2 % (0-6); Hematocrit 32.5 % (37.0-53.0); Hemoglobin 10.3 g/dL (13.5-17.5); IMMATURE GRAN ABSOLUTE AUTO 0.02 K/mm3 (0.00-0.10); IMMATURE GRAN PERCENT AUTO 0 % (0-1); LYMPHOCYTES ABSOLUTE AUTO 1.65 K/mm3 (0.84-5.20); LYMPHOCYTES PERCENT AUTO 18 % (21-46); MONOCYTES ABSOLUTE AUTO 1.01 K/mm3 (0.16-1.47); MONOCYTES PERCENT AUTO 11 % (4-13); Mean Corpuscular HGB 24.2 pg (26.0-34.0); Mean Corpuscular HGB Conc 31.7 g/dL (31.5-36.5); Mean Corpuscular Volume 76 fL (80-100); Mean Platelet Volume 10.3 fL (9.1-12.4); NEUTROPHILS ABSOLUTE AUTO 6.48 K/mm3 (1.96-9.15); NEUTROPHILS PERCENT AUTO 70 % (41-73); Platelet Count 236 K/mm3 (150-400); RDW Standard Deviation 49.8 fL (35.1-46.3); Red Blood Cell Count 4.26 M/mm3 (4.30-5.90); White Blood Cell Count 9.33 K/mm3 (4.00-11.30)
[2022-09-06 04:05] LABS: Albumin, Blood 2.7 g/dL (3.4-5.0); Albumin/Globulin Ratio 0.7 (0.8-1.8); Bilirubin, Total 0.6 mg/dL (0.1-1.0); Bun/Creatinine Ratio 16.4 (12.0-20.0); Creatinine, Blood 0.79 mg/dL (0.60-1.20); Globulin, Blood 4.1 g/dL (2.2-4.0); Potassium, Blood 4.3 mmol/L (3.5-5.5); Total Protein, Blood 6.8 g/dL (6.4-8.2)
[2022-09-06 05:07] LABS: U Amphetamine Screen DETECTED; U Barbituate Screen Not Detected; U Benzodiazapine Screen DETECTED; U Buprenorphine Screen Not Detected; U Cannabinoids Screen DETECTED; U Cocaine Screen Not Detected; U Methadone Screen Not Detected; U Methamphetamine Screen DETECTED; U Opiates Screen Not Detected; U Oxycodone Screen Not Detected; U Phencyclidine Screen Not Detected; U Propoxyphene Screen Not Detected
--- NOTE | 2022-09-06 06:18 | NUR ---
SHIFT SUMMARY NO ACUTE CHANGES DURING NOC. SLEEPING WHEN UNDISTURBED. ROUSES TO STIMULI, BUT FALLS QUICKLY BACK TO SLEEP WHEN UNDISTURBED. ORIENTED TO SELF ONLY. FOLLOWS SIMPLE DIRECTIONS AT TIMES. SPEECH IS CLEAR WHEN AWAKE. MOVES ALL EXTREMITIES AND REPOSITIONS SELF IN BED. MONITOR SHOWS NSR/SB, RATE 50s-60s. BP STABLE. RA SATS STABLE. RESPIRATIONS EVEN AND UNLABORED. RFA DRSG INTACT WITH SMALL AMOUNT OF SEROUS DRAINAGE. LR INFUSING AT 125MLS/HR. PT IS TOO SEDATED TO EDUCATE EFFECTIVELY REGARDING IGNITION SOURCES AND RISK OF INJURY. WILL CONTINUE TO ASSESS RISK PT CONDITION CHANGES/IMPROVES.
--- NOTE | 2022-09-06 07:00 | NUR ---
ASSUME CARE: I have assumed care of this patient.
--- NOTE | 2022-09-06 08:14 | NUR ---
SURGEON AT BEDSIDE: Ortho at bedside to assess right arm. Pt states, "No, I'm good. I was sleeping." when if dressing could be removed.
--- NOTE | 2022-09-06 08:22 | NUR ---
PROVIDER UPDATE: PMHNP Candy called to assess pt as he is now arousable. Will come see pt.
--- NOTE | 2022-09-06 10:47 | NUR ---
"Spiritual Care Attempted | Physician Request Pt. is somnolent but responds after I enter the room. Pt. displays evidence of not understanding who is visiting him, as he kept requesting more food. When the Pt. understood that my visit was one of spiritual support, he declined the visit, and then verbally requested that he receive more food. Updated the attending nurse Peter of my visit and my concerns."
--- NOTE | 2022-09-06 12:00 | NUR ---
IGNITION RISK DEFERRAL: Due to pt's mental status, ignition risk education was deferred until pt more alert.
--- NOTE | 2022-09-06 12:03 | NUR ---
TRANSFER: Pt transferred to medical [facility] from ICU. Report was given to Jonathan. 2 MD hold has been discontinued and pt verbalizes agreement to receive IV antibiotics at this time.
--- NOTE | 2022-09-06 12:04 | NUR ---
REPORT RECEIVED FROM [facility] ICU
--- NOTE | 2022-09-06 13:20 | NUR ---
1220 PT ADMITTED TO ROOM. HE TALKING NONSENSICAL AT TIMES. THEN ANSWERS QUESTIONS NORMALLY. STATES WILL BE GOING HOME NOW. TRIED TO ENCOURAGE HIM TO STAY AND RECEIVE ANTIBIOTICS FEW DAYS, HE REFUSED. REQUESTED ICECREAM WITH LUNCH. STATES WANTED BREAKFAST. EXPLAINED IS LUNCH TIME, HE DECIDED IT WAS TIME TO GO ANYWAY. WANTED TO EAT AFEW BITES. STARTED ABX. 1240 CAME BACK TO ROOM. HE PULLED IV LINE, BROKE IT, BLEEDING SOME. DEMANDED TO LEAVE HOSP. ATTEMPTED TO ASSIST TO STAY. HE NOT AGREEABLE TO STAY OBTAINED AMA FORM. HE SIGNED FORM. I PULLED IV X 2. WALKED PT TO DOOR. 1240
== END 2022-09-06 12:53 | disposition left against medical advice (07) ==
LOC: ER 16:30 → ICUE 16:31 → MEDS 09-06 12:14
PROVIDERS: Nurse Practitioner Acute Care; Student in an Organized Health Care Education/Training Program; ADMIT Internal Medicine
DX: A41.9 Sepsis, unspecified organism (principal); R65.21 Severe sepsis with septic shock; F15.10 Other stimulant abuse, uncomplicated; F11.10 Opioid abuse, uncomplicated; Z53.29 Procedure and treatment not carried out because of patient's decision for other reasons; F17.200 Nicotine dependence, unspecified, uncomplicated; Z88.0 Allergy status to penicillin; Z59.00 Homelessness unspecified
CPT/HCPCS: 36415; 73201; 80053; 83605; 83735; 85025; 87040; 87081; 96365; 96366; 96367; 96375; 99285-25; A9270; G0378; J0690; J1200; J1790; J1885; J2060; J3370; J7050; J7120; Q9967

== ENCOUNTER 2022-10-27 01:03 | Emergency (ER) | payer OTHER ==
[~2022-10-27] VITALS: Ht 177.8 cm; Wt 61.2 kg
[2022-10-27 01:11] VITALS: BP 172/94
[2022-10-27] MEDS ORDERED: CEPH500 PO (04:21)
== END 2022-10-27 04:46 | disposition home or self-care (01) ==
LOC: ER 01:03
DX: L03.114 Cellulitis of left upper limb (principal); Z88.0 Allergy status to penicillin; F17.200 Nicotine dependence, unspecified, uncomplicated
CPT/HCPCS: 99283; A9270

== ENCOUNTER 2023-03-08 20:43 | Inpatient (IN) | payer OTHER ==
[~2023-03-08] VITALS: Ht 177.8 cm; Wt 69.9 kg
[~2023-03-08 20:43] MED LIST changes: +CEPH500 PO
[2023-03-08 21:02] LABS: Base Excess Venous 0 mmol/L; Bicarbonate Venous 24.9 mmol/L (24.0-30.0); PCO2 Venous 33.6 mmHg (38-42); pH Blood Venous 7.46 (7.34-7.37)
[2023-03-08 21:03] LABS: BASOPHILS ABSOLUTE AUTO 0.02 K/mm3 (0.00-0.23); BASOPHILS PERCENT AUTO 0 % (0-2); EOSINOPHILS ABSOLUTE AUTO 0.09 K/mm3 (0.00-0.68); EOSINOPHILS PERCENT AUTO 1 % (0-6); Hematocrit 38.3 % (37.0-53.0); Hemoglobin 12.6 g/dL (13.5-17.5); IMMATURE GRAN ABSOLUTE AUTO 0.01 K/mm3 (0.00-0.10); IMMATURE GRAN PERCENT AUTO 0 % (0-1); LYMPHOCYTES ABSOLUTE AUTO 1.88 K/mm3 (0.84-5.20); LYMPHOCYTES PERCENT AUTO 25 % (21-46); MONOCYTES ABSOLUTE AUTO 0.66 K/mm3 (0.16-1.47); MONOCYTES PERCENT AUTO 9 % (4-13); Mean Corpuscular HGB 25.6 pg (26.0-34.0); Mean Corpuscular HGB Conc 32.9 g/dL (31.5-36.5); Mean Corpuscular Volume 78 fL (80-100); Mean Platelet Volume 10.5 fL (9.1-12.4); NEUTROPHILS PERCENT AUTO 64 % (41-73); Platelet Count 277 K/mm3 (150-400); RDW Coefficient Variation 16.2 % (11.7-14.2); RDW Standard Deviation 45.4 fL (35.1-46.3); Red Blood Cell Count 4.93 M/mm3 (4.30-5.90); White Blood Cell Count 7.46 K/mm3 (4.00-11.30)
[2023-03-08 21:15] LABS: Source, Urine Straight Cath
[2023-03-08 21:18] LABS: Appearance, Urine Clear (Clear); Bilirubin, Urine Neg (Neg); Blood, Urine Neg (Neg); Color, Urine Yellow (P-Yellow); Glucose Qualitative, Urine Neg (Neg); Ketones, Urine Neg (Neg); Leukocyte Esterase, Urine Neg (Neg); Nitrite, Urine Neg (Neg); Protein, Urine Neg (Neg); Specific Gravity, Urine 1.015 (1.003-1.022); Urobilinogen, Urine NORM (Normal)
[2023-03-08 21:21] LABS: Albumin, Blood 3.6 g/dL (3.4-5.0); Albumin/Globulin Ratio 0.9 (0.8-1.8); Bilirubin, Total 0.3 mg/dL (0.1-1.0); Bun/Creatinine Ratio 27.5 (12.0-20.0); Calcium, Blood 8.5 mg/dL (8.5-10.1); Creatinine, Blood 0.73 mg/dL (0.60-1.20); Globulin, Blood 4.2 g/dL (2.2-4.0); Phosphorus, Blood 3.2 mg/dL (2.5-4.9); Potassium, Blood 4.2 mmol/L (3.5-5.5); Total Protein, Blood 7.8 g/dL (6.4-8.2)
[2023-03-08 21:29] LABS: U Amphetamine Screen DETECTED; U Barbituate Screen Not Detected; U Benzodiazapine Screen Not Detected; U Buprenorphine Screen Not Detected; U Cannabinoids Screen Not Detected; U Cocaine Screen Not Detected; U Methadone Screen Not Detected; U Methamphetamine Screen DETECTED; U Opiates Screen Not Detected; U Oxycodone Screen Not Detected; U Phencyclidine Screen Not Detected
[2023-03-08 22:28] LABS: Influenza A, PCR NEGATIVE (NEGATIVE); Influenza B, PCR NEGATIVE (NEGATIVE); Resp Syncytial Virus, PCR NEGATIVE (NEGATIVE); SARS-Cov-2 (COVID-19) PCR, MMC NEGATIVE (NEGATIVE)
[2023-03-09] VITALS (22 sets, daily range): BP systolic 94–160; BP diastolic 46–84
[2023-03-09 03:27] LABS: BASOPHILS ABSOLUTE AUTO 0.02 K/mm3 (0.00-0.23); BASOPHILS PERCENT AUTO 0 % (0-2); EOSINOPHILS ABSOLUTE AUTO 0.02 K/mm3 (0.00-0.68); EOSINOPHILS PERCENT AUTO 0 % (0-6); Hematocrit 35.2 % (37.0-53.0); Hemoglobin 11.7 g/dL (13.5-17.5); IMMATURE GRAN ABSOLUTE AUTO 0.02 K/mm3 (0.00-0.10); IMMATURE GRAN PERCENT AUTO 0 % (0-1); LYMPHOCYTES ABSOLUTE AUTO 0.81 K/mm3 (0.84-5.20); LYMPHOCYTES PERCENT AUTO 10 % (21-46); MONOCYTES ABSOLUTE AUTO 0.28 K/mm3 (0.16-1.47); MONOCYTES PERCENT AUTO 3 % (4-13); Mean Corpuscular HGB 25.8 pg (26.0-34.0); Mean Corpuscular HGB Conc 33.2 g/dL (31.5-36.5); Mean Corpuscular Volume 78 fL (80-100); Mean Platelet Volume 11.1 fL (9.1-12.4); NEUTROPHILS ABSOLUTE AUTO 7.11 K/mm3 (1.96-9.15); NEUTROPHILS PERCENT AUTO 86 % (41-73); Platelet Count 339 K/mm3 (150-400); RDW Coefficient Variation 16.8 % (11.7-14.2); RDW Standard Deviation 46.9 fL (35.1-46.3); Red Blood Cell Count 4.54 M/mm3 (4.30-5.90); White Blood Cell Count 8.26 K/mm3 (4.00-11.30)
[2023-03-09 04:43] LABS: Albumin, Blood 3.1 g/dL (3.4-5.0); Albumin/Globulin Ratio 0.8 (0.8-1.8); Bilirubin, Direct 0.2 mg/dL (0.0-0.3); Bilirubin, Indirect 0.3 mg/dL (0.1-0.7); Bilirubin, Total 0.5 mg/dL (0.1-1.0); Bun/Creatinine Ratio 23.3 (12.0-20.0); Calcium, Blood 8.5 mg/dL (8.5-10.1); Creatinine, Blood 0.82 mg/dL (0.60-1.20); Globulin, Blood 3.8 g/dL (2.2-4.0); Potassium, Blood 4.3 mmol/L (3.5-5.5); Thyroid Stimulating Hormone 2.18 uIU/mL (0.360-4.800); Total Protein, Blood 6.9 g/dL (6.4-8.2)
--- NOTE | 2023-03-09 05:58 | NUR ---
SHIFT SUMMARY: PT ARRIVED ON THE UNIT AT 0010. UPON ARRIVAL HE WAS ATTEMPTING TO SIT UP IN THE BED AND YELLING NONSENCICALLY. HE DID NOT RESPOND TO ANY REDIRECTION. HE WAS TRANSFERED TO THE ICU BED AND CONTINUED TO ATTEMPT TO SIT UP. HE OCCASIONALY WOULD HAVE SPASTIC NONPURPUSFUL MOVEMENTS. EVEN THOUGH HE WAS UNRESPONSIVE HE WAS ABLE TO SIT UP AND COUGH CLEARING HIS AIRWAY. PT REMAINED ON RA THROUGH THE NIGHT MAINTAINED OXYGEN SATURATION > 90%. UPON INITAL ASSESMENT HE HAD A DEFORMITY TO HIS LEFT SHOULDER. DR. JACKSON WAS INFORMED AND A A STAT X-RAY WAS ORDERED. PT WAS RESPONSIVE TO PAIN. HE HAD INCREASED AGITATION AND YELLING WITH MOVEMENT OF HIS LEFT ARM AND HE APPEARD TO BE IN PAIN. DR. JACKSON WAS CONTACTED AND GAVE AN ORDER FOR IV PAIN MEDICATION. PT CONTINUED TO BE AGITATED, BUT UNRESPONSIVE TO ANYTHING BUT PAIN. HE WAS NOT ABLE TO ANSWER ANY QUESTIONS OR FOLLOW ANY COMMANDS. HE ALSO APPEARD TO HAVE A DEFORMITY TO HIS LEFT WRIST. A BRACE WAS PLACED ON THE WRIST AND THIS SEEMED TO HELP WITH HIS PAIN. PT WAS NOT REDIRECTABLE THROUGH THE NIGHT, BUT HE DID NOT EVER ATTEMPT TO PULL AT HIS LINES OR CLIMB OUT OF BED. PT SAFETY WAS MAINTAINED.
--- NOTE | 2023-03-09 12:14 | NUR ---
ATTEMPTED TO CONTACT FAMILY CALL PLACED TO MARY ALICE LUCAS LISTED SISTER ON FACESHEET, NO ANSWER AND NO ABILITY TO LEAVE A VOICE MESSAGE. CALL PLACED TO JILLIAN MORRISON LISTED PERSON TO NOTIFY/FRIEND AND THE NUMBER HAS BEEN DISCONNECTED. NO FAMILY AT BEDSIDE, NO CALLS FROM ANYONE INQUIRING TO PT'S STATUS.
--- NOTE | 2023-03-09 18:36 | NUR ---
DAY SHIFT SUMMARY PT REMAINS SOMNOLENT AND ONLY RESPONSIVE TO PAIN. MOVES SELF SIDE TO SIDE IN BED FREQUENTLY. OPENS EYES SPONTANEOUSLY WHEN STIMULATED BUT FALLS BACK TO SLEEP IMMEDIATELY. OCCASIONALLY STARTLES WITH NOISE IN THE ROOM. SR, NO ECTOPY. BP WNL. O2 SAT 100% ON ROOM AIR. LUNGS CTA. NPO DUE TO SOMNOLENCE, UNCOOPERATIVE WITH MOUTH CARE, MULTIPLE LESIONS IN MOUTH. VICKERS TO GRAVITY, PATENT AND DRAINING CLEAR YELLOW URINE. SKIN WITH MULTIPLE SCABS, ABRASIONS AND RAISED SWOLLEN AREAS. PIV X2, D5 1/2 NS AT 125 ML/HR. DEFORMITY TO LEFT CLAVICLE OLD PER ORHTO, NO SURGICAL NEEDS AT THIS TIME. ORTHO SIGNED OFF. NO CALLS FROM FRIENDS/FAMILY TO INQUIRE ABOUT PT STATUS. ATTEMTPED CALLS TO BOTH CONTACTS ON FACESHEET WITH NO SUCCESS. PT STATUS CHANGED TO PCU. POC ONGOING.
--- NOTE | 2023-03-09 19:26 | NUR ---
ARRIVAL/ASSUMPTION OF CARE PT ARRIVED TO PCU AT 1905 VIA HOSPITAL BED, BEDSIDE REPORT FROM FELIPA BOYER. THIS RN ASSUMED CARE AT THIS ITME. PT SOMNOLENT AND DIFFICULT TO AROUSE, PT NOT OPENING EYES SPONTANEOUSLY. PT NOT RESPONDING TO QUESTIONS, ALTHOUGH IS FOLLOWING SOME COMMANDS WHEN TRANSFERRING AND MOVING PT IN THE BED. PUPILS 2' EQUAL AND REACTIVE TO LIGHT. PT ABLE TO SQUEEZE THIS RN'S HANDS WHEN PROMPTED BUT HEAD OF TALENT MANAGEMENT IS WEAK, PT THEN STOPPED FOLLOWING COMMANDS. VS; BP 121/66 (MAP 82), HRR SINUS WITH TA OF 79, RR 18, SPO2 96% RA, TEMP 100.3. PT IS HOT TO THE TOUCH. PT HAS MULTIPLE, VARIOUS SCATTERED SCABS AND ABCESSES THROUHGOUT HIS BODY. IVF INFUSING PER EMAR. CALL LIGHT IN REACH AND BED IN LOWEST POSITION, BED ALARM ON.
[2023-03-09 23:16] LABS: Vancomycin, Trough 21.1 ug/mL (5.0-10.0)
[2023-03-10] VITALS (7 sets, daily range): BP systolic 132–154; BP diastolic 61–87
[2023-03-10 03:50] LABS: BASOPHILS ABSOLUTE AUTO 0.02 K/mm3 (0.00-0.23); BASOPHILS PERCENT AUTO 0 % (0-2); EOSINOPHILS ABSOLUTE AUTO 0.06 K/mm3 (0.00-0.68); EOSINOPHILS PERCENT AUTO 1 % (0-6); Hematocrit 34.6 % (37.0-53.0); Hemoglobin 11.1 g/dL (13.5-17.5); IMMATURE GRAN ABSOLUTE AUTO 0.04 K/mm3 (0.00-0.10); IMMATURE GRAN PERCENT AUTO 0 % (0-1); LYMPHOCYTES ABSOLUTE AUTO 1.07 K/mm3 (0.84-5.20); LYMPHOCYTES PERCENT AUTO 10 % (21-46); MONOCYTES ABSOLUTE AUTO 0.95 K/mm3 (0.16-1.47); MONOCYTES PERCENT AUTO 9 % (4-13); Mean Corpuscular HGB 25.9 pg (26.0-34.0); Mean Corpuscular HGB Conc 32.1 g/dL (31.5-36.5); Mean Corpuscular Volume 81 fL (80-100); Mean Platelet Volume 10.4 fL (9.1-12.4); NEUTROPHILS ABSOLUTE AUTO 8.57 K/mm3 (1.96-9.15); NEUTROPHILS PERCENT AUTO 80 % (41-73); Platelet Count 199 K/mm3 (150-400); RDW Coefficient Variation 17.3 % (11.7-14.2); RDW Standard Deviation 50.4 fL (35.1-46.3); Red Blood Cell Count 4.29 M/mm3 (4.30-5.90); White Blood Cell Count 10.71 K/mm3 (4.00-11.30)
[2023-03-10 04:14] LABS: Albumin, Blood 2.5 g/dL (3.4-5.0); Albumin/Globulin Ratio 0.7 (0.8-1.8); Bilirubin, Total 0.5 mg/dL (0.1-1.0); Bun/Creatinine Ratio 16.6 (12.0-20.0); Calcium, Blood 8.1 mg/dL (8.5-10.1); Creatinine, Blood 0.84 mg/dL (0.60-1.20); Globulin, Blood 3.8 g/dL (2.2-4.0); Total Protein, Blood 6.3 g/dL (6.4-8.2)
--- NOTE | 2023-03-10 05:39 | NUR ---
SHIFT SUMMARY PT REMAINS OBTUNDED DURING SHIFT - LITTLE CHANGE IN NEURO COMPARED TO ASSUMPTION OF CARE NOTE. PUPILS 2; CONTINUE TO BE EQUAL AND REACTIVE TO LIGHT. AROUND 0200 THIS RN INTO COMPLETE PT CARE; THIS RN ABLE TO BRIEFLY STIMULATE PT WITH STERNAL RUB. PT BRIEFLY OPENED HIS EYES AND RESPONDED TO ORIENTATION QUESTIONS. PT WAS ABLE TO STATE HE WAS AT THE HOSPITAL, HIS NAME AND BIRTHDAY. UNABLE TO RECALL EVENT OR WHAT HAPPEN OR DATE/TIME. THIS RN REDIRECTED PT TO EVENT AND DATE/TIME. PT QUIKLY FELL BACK TO SLEEP. THIS RN ASKED PT IF HE REMEMBERED WHAT HE TOOK BEFORE SAID EVENT; PT STATES "NO, NO I DON'T KNOW". SINCE, PT HAS NOT RESPONDED MUCH TO VERBAL STIMULI. PT DOES RESPOND TO PAIN AND INTERMITTENTLY FOLLOWS MINIMAL COMMANDS. VS; SBP 120 - 130'S - LAST 399 SBP 154. SINUS RHYTHM IN 60 - 70'S, PT ALSO SINUS KELLEN AT TIMES 46 - 50'S WITH ONE EVENT OF HR BRIEFLY TOUCHING DOWN TO 38. ALSO OF NOTE AROUND 0 LABOR RELATIONS SUPERVISOR NOTIFIED THIS RN THAT PT HAD 2 SEC PAUSE; SEE TELEMETRY. HYDRAULIC PRESS OPERATOR AWARE. TEMP MAX 100.3. PT REMAINS ON RA AND IS PROTECTING HIS OWN AIRWAY DURING SHIFT. PT ABLE TO CLEAR COUGH AND SECRETIONS INDEPENDENTLY. PT RESISTING AND FIGHTING SUCTIONING OR ORAL CARE. PT ORAL CAVITY APPEARS VERY DRY, WITH BUILD UP AND VARIOUS SORES. SPO2 >94% ON RA, RR AND WOB WNL. VICKERS CATHETER IN PLACE AND DRAINING YELLOW URINE; 1350 MLS URINE OUT. IVF AND ABX PER EMAR. CALL LIGHT IN REACH, ALTHOUGH PT NOT ABLE TO UTILIZE OR VERBALIZE NEEDS YET. FREQUENT ROUNDING AND BEDALARM ON. WILL UPDATE ONCOMING RN
--- NOTE | 2023-03-10 09:00 | NUR ---
INITIAL ASSESSMENT: Patient is resting with eyes closed, he awakens after I say his name a couple of times. He is able to tell me his name, , and location. When asked what brought him into the hospital he stated, "I don't want to talk about it." He continues to repeat, "I just want to sleep, thank you." He denies pain at this time. HRR, he is in SR in the 60s. LS DIM T/O, he has a coarse NPC, his is 99% on RA. BT+. PPP, no edema present at this time. VSS. Patient is able to reposition himself in bed. Mendoza cath patent and draining clear yellow urine, mendoza cath DC'd-will assess for retention.
--- NOTE | 2023-03-10 15:06 | NUR ---
Update: Patient is more awake and asking to eat, he is given water and carrie mist-no issues swallowing. Gayle QUEEN to talk with patient about any needs at home. Patient declines a bath at this time. He is resting comfortably. He was able to void after the catheter was removed. He denies other needs at this time. Call light in reach, bed alarm on for safety.
--- NOTE | 2023-03-10 18:03 | NUR ---
Summary: Patient was initially lethargic and wanted to sleep. Around 1500 the patient was awake and Ox4 and able to eat without difficulty. He does not want to talk about why he is admitted and would, "like to be left alone to sleep." He has not C/O any pain for me this shift. HRR, SB-SR rate mostly in the 60s-70s, he did drop down into the 40s very briefly while sleeping and was having an apnec period. LS DIM in the bases, his biox has been in the high 90s on RA. He has a coarse NPC. BT+, no BM this shift. He has been refusing oral care T/O the shift. Francesca dental hygeneist came by to see the patient and he refused to see her as well. He has several missing teeth and poor oral hygiene. No acute changes this shift, patient has been downgraded to medical status. Will report to oncoming RN.
[2023-03-11 01:30] LABS: Vancomycin, Trough 16.4 ug/mL (5.0-10.0)
[2023-03-11 03:43] VITALS: BP 153/64
--- NOTE | 2023-03-11 05:49 | NUR ---
SHIFT SUMMARY PT LETHARGIC DURING SHIFT, ABLE TO BE AROUSED WITH VERBAL AND TACTILE STIMULI; [place] IT DOES TAKE A FEW TIMES FOR PT TO RESPOND. PT ORIENTED TO PERSON, PLACE AND SELF. PT REORIENTED TO DATE/TIME AND EVENT; PT NOT ABLE TO RECALL INFORMATION WHEN ASKED AGAIN. PT QUICKLY FALLS BACK TO SLEEP. PT IRRITABLE WHEN AWAKENED AND IS DECLINING MOST CARE. PT DECLINES BATHING AND ORAL CARE. PT INITIALLY DECLINING LABS AND VITALS SIGNS. THIS RN ABLE TO TALK WITH PT AND FINALLY AGREEABLE TO MINIMAL CARE. VSS; SBP 150, HRR - SR/SB 45 - 60'S. NO PAUSES THIS SHIFT. [employer] DID NOTIFY THIS RN THAT PT HAD 2 EPISODES OF SVT ON MONITOR; ONE AT 1904 12 BEATS, THE OTHER ONE AROUND 0120 WITH 8 BEATS OF SVT. PT ASYMPTOMATIC AND SLEEPING AT DURING EVENTS. RR AND WOB WNL, SPO2 >95% ON RA. TEMP MAX THIS SHIFT 101.2; TYLENOL PER EMAR, TEMP RECHECK 99.0. PT VERY HOT TO THE TOUCH BUT DECLINES ICE PACKS OR INTERVENTIONS, BUT AGREEABLE TO PO MEDICATION, ROOM TEMP ADJUSTED. PT WAKING UP SPORADICALLY TO REQUEST SNACKS AND DRINKS; PT TOLERATING PO INTAKE WELL. PT VOIDING INDEPENDENTLY WITH URINAL IN BED WITH GOOD OUTPUT THIS SHIFT; SEE I&O'S. ABX PER EMAR. PT CURRENTLY RESTING, CALL LIGHT IN REACH AND BED ALARM ON. WILL UPDATE ONCOMING RN
[2023-03-11 07:54] VITALS: BP 156/88
--- NOTE | 2023-03-11 09:28 | NUR ---
Initial assessment: Patient is resting on his right side with his eyes closed, he wakes easily with verbal stimuli. He is oriented to self, location, and situation. He is not able to tell me the date. He denies pain.VSS HRR, he is SR in the 60s. He denies chest pain or SOB. LS DIM in the bases, he has a coarse NPC. Biox is high 90s on RA. BT+. PPP. Small ulceration to the inside of his left foot. He has a splint to his left wrist. AM medications given at this time. Patient is asking when he gets to leave today. Dr. Saul notified by charge nurse, see new orders.
--- NOTE | 2023-03-11 09:58 | NUR ---
DISCHARGE: Patient was given sweats and sweatshirt. I reviewed DC instructions with him, he verblaized understanding. He ambulated out IND to home.
== END 2023-03-11 09:59 | disposition home or self-care (01) | DRG 917 ==
LOC: ER 20:43 → ICUE 23:04 → PCU 03-09 19:11
PROVIDERS: Emergency Medicine; Internal Medicine; ADMIT Internal Medicine
DX: T43.651A Poisoning by methamphetamines accidental (unintentional), initial encounter (principal); G92.8 Other toxic encephalopathy; Z59.00 Homelessness unspecified; F15.10 Other stimulant abuse, uncomplicated; F11.10 Opioid abuse, uncomplicated; R00.1 Bradycardia, unspecified; S42.002D Fracture of unspecified part of left clavicle, subsequent encounter for fracture with routine healing; S22.32XD Fracture of one rib, left side, subsequent encounter for fracture with routine healing; X58.XXXD Exposure to other specified factors, subsequent encounter; Z86.19 Personal history of other infectious and parasitic diseases; Z11.52 Encounter for screening for COVID-19; Z88.0 Allergy status to penicillin
CPT/HCPCS: 0241U; 36415; 51701; 51702; 70450; 71045; 72125; 73020; 73100; 80048; 80053; 80076; 80202; 81003; 82550; 82803; 82947; 83605; 83735; 84100; 84145; 84443; 85025; 93005; 93010; 96365-59; 96367-59; 99291-25; A9270; J0692; J0696; J1650; J2250; J2270; J2310; J3370; J7042; J7050; J7120